=== PATIENT | male | born 1970 | race Caucasian/White ===

== ENCOUNTER 2018-06-11 09:59 | Emergency (ER) | payer OTHER ==
[~2018-06-11] VITALS: Ht 180.3 cm; Wt 113.4 kg
--- NOTE | 2018-06-11 10:11 | NUR ---
Patient ambulated to bed 8. RN evaluating patient at bedside.
[2018-06-11 10:14] VITALS: BP 122/74
--- NOTE | 2018-06-11 10:15 | NUR ---
PT ADVISE TO USE URINAL BUT PT REFUSED AND WANT TO AMBULATES TO THE RESTROOM, URINE CUP PROVIDED.
--- NOTE | 2018-06-11 10:17 | NUR ---
LEFT HIP PAIN X 6 MONTHS, NO ACUTE INJURY. 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 HOWEVER PAIN IS DIFFICULT TOMANAGE AT HOME. DENIES ANY NUMBNESS/TINGLING. MED HX: HYPERLIPEDEMIA RX:IBUPROFEN
--- NOTE | 2018-06-11 10:28 | NUR ---
Dr. Navarrete evaluating patient at bedside.
[2018-06-11 11:10] VITALS: BP 122/74
--- NOTE | 2018-06-11 11:10 | NUR ---
Patient discharged with v/s stable. Written and verbal after care instructions given and explained. Patient alert, oriented and verbalized understanding of instructions. Ambulatory limping to his car refuses wheel chair assistance. All questions addressed prior to discharge. ID band removed. Patient advised to follow up with PMD. Rx of [place] given. Patient educated on indication of medication including possible reaction and side effects. Opportunity to ask questions provided and answered.
== END 2018-06-11 11:10 | disposition home or self-care (01) ==
LOC: MED 09:59
DX: M13.852 Other specified arthritis, left hip (principal)
CPT/HCPCS: 99283